=== PATIENT | female | born 1945 | race Caucasian/White ===

== ENCOUNTER 2025-06-20 14:29 | Emergency (ER) | payer MEDICARE, MEDICAID, SELFPAY ==
[2025-06-20 14:51] VITALS: BP 192/81; PULSE 76; RESP 18; TEMP 36.6; O2SAT 97; BMI 25.1
--- NOTE | 2025-06-20 14:51 | ED_ITS ---
HPI - Allergic Reaction General Chief complaint: Allergic Reaction Stated complaint: allergic reaction after eating jello Time Seen by Provider: 06/20/25 14:53 Related Data Allergies Allergy/AdvReac Type Severity Reaction Status Date / Time cephalexin (From KEFLEX) Allergy Severe ANGIO EDEMA Unverified 06/20/25 14:56 Penicillins (PCN) Allergy Severe DIFFICULTY Unverified 06/20/25 14:56 BREATHING codeine (CODEINE) Allergy Intermediate RASH Unverified 06/20/25 14:56 oxycodone Allergy Unknown rash Unverified 06/20/25 14:56 penicillin V Allergy Unknown Unknown Unverified 06/20/25 14:56 [facility] Social History Social History Advance Directives: No Advance Directives Information Provided: No Physical Exam ED Vital Signs: Vital Signs - 24 hr 06/20/25 14:51 Temperature 98 F Pulse Rate 76 Respiratory Rate 18 Blood Pressure 192/81 H Pulse Oximetry 97 Oxygen Delivery Method Room Air BMI result Body Mass Index 25.1 Course Course Course Narrative: Agatha Onofre [employer] 06/20/25 1458 This is a rapid medical exam. Defer additional HPI, ROS and PE to primary provider. 80-year-old female here with complaints of headache, bilateral blurry vision since last evening. Headache seemed better with Tylenol. Also concerned that she may be having allergic reaction to Jell-O which she ate. Her allergy symptoms are described as itching around my mouth. She does reports that she takes no antihypertensive. Her blood pressure is elevated in triage. Will obtain labs, EKG Hypertensive in triage Medical Decision Making Lab Data 06/20/25 15:09 06/20/25 15:09 Labs: Lab Results 06/20/25 Range/Units 15:09 WBC 7.3 (4.8-10.8) X10*3/uL RBC 4.13 L (4.20-5.50) X10*6/uL Hgb 12.0 (12.0-16.0) g/dl Hct 36.6 L (37.0-47.0) % MCV 88.6 (80.0-98.0) fL MCH 29.1 (27.0-33.0) pg MCHC 32.8 (31.0-35.0) g/dl RDW 13.0 (11.0-16.0) % Plt Count 146 L (160-400) X10*3/uL MPV 10.9 (9.4-12.3) fL Immature Gran % (Auto) 0.3 (0.0-0.4) % Neut % (Auto) 44.9 L (45-73) % Lymph % (Auto) 40.0 (20-40) % [place] % (Auto) 8.1 (2-11) % Eos % (Auto) 5.9 H (0-4) % Baso % (Auto) 0.8 (0-2) % Lymph # (Auto) 2.9 (1.2-4.9) X10*3/uL [place] # (Auto) 0.6 (0.1-1.2) X10*3/uL Eos # (Auto) 0.4 (0.0-0.4) X10*3/uL Baso # (Auto) 0.1 (0.0-0.2) X10*3/uL Abs Immat Gran (auto) 0.02 (0.00-0.03) X10*3/uL Absolute Neuts (auto) 3.3 (2.0-8.3) x10*3/uL Absolute Nucleated RBC 0.000 (0.0-0.012) X10*3/uL Nucleated RBC % (auto) 0.0 (0.0-0.2) /100WBC Sodium 140 (135-145) mmol/L Potassium 4.0 (3.3-5.1) mmol/L Chloride 106 (96-108) mmol/L Carbon Dioxide 26 (22-29) mmol/L Anion Gap 12 (12-20) BUN 19 H (9-16) mg/dL Creatinine 0.89 (0.5-1.4) mg/dL Estim Creat Clear Calc 47.0 Estimated GFR > 60 Random Glucose 156 H (60-115) mg/dL Calcium 9.5 (8.4-10.2) mg/dL Total Bilirubin 0.2 (0.0-1.0) mg/dL Direct Bilirubin < 0.2 (0.0-0.5) mg/dL AST 37 H (5-31) U/L ALT 23 (0-31) U/L Alkaline Phosphatase 79 (39-117) U/L Troponin I High Sens 5.2 (<3.5-17.0) ng/L Total Protein 7.5 (6.5-8.0) g/dL Albumin 4.1 (3.5-5.0) g/dL Discharge Plan Discharge Clinical Impression: Allergic reaction, Hypertension Patient Disposition: Left W/O Completing Treatment Discharge Date/Time: 06/20/25 20:37
--- NOTE | 2025-06-20 14:58 | ECG_ITS ---
Test Reason : hypertensive Blood Pressure : */* mmHG Vent. Rate : 70 BPM Atrial Rate : 70 BPM P-R Int : 176 ms QRS Dur : 90 ms QT Int : 406 ms P-R-T Axes : -4 -25 85 degrees QTcB Int : 438 ms Normal sinus rhythm Moderate voltage criteria for LVH, may be normal variant ( R in aVL , Tobias product ) Borderline ECG No previous ECGs available Referred By: Agatha Onofre Electronically Signed By: Noman Rhodes
[2025-06-20 15:13] LABS: MANUAL DIFF FLAG NO
[2025-06-20 15:15] LABS: Hematocrit 36.6 % (37.0-47.0); Hemoglobin 12.0 g/dl (12.0-16.0); Imm Gran Abs Auto 0.02 X10*3/uL (0.00-0.03); Imm Gran Pct Auto 0.3 % (0.0-0.4); Lymphocytes Absolute Auto 2.9 X10*3/uL (1.2-4.9); Mean Corpuscular HGB Conc 32.8 g/dl (31.0-35.0); Mean Corpuscular Hemoglobin 29.1 pg (27.0-33.0); Mean Corpuscular Volume 88.6 fL (80.0-98.0); NRBC Abs Auto 0.000 X10*3/uL (0.0-0.012); NRBC Pct Auto 0.0 /100WBC (0.0-0.2); Platelet Count 146 X10*3/uL (160-400); Red Blood Count 4.13 X10*6/uL (4.20-5.50); White Blood Count 7.3 X10*3/uL (4.8-10.8)
[2025-06-20 15:31] LABS: Alanine Aminotransferase 23 U/L (0-31); Albumin Level 4.1 g/dL (3.5-5.0); Alkaline Phosphatase 79 U/L (39-117); Anion Gap 12 (12-20); Aspartate Amino Transferase 37 U/L (5-31); Blood Urea Nitrogen 19 mg/dL (9-16); Calcium 9.5 mg/dL (8.4-10.2); Carbon Dioxide 26 mmol/L (22-29); Chloride 106 mmol/L (96-108); Creatinine Clr Calc Pharmacy 47.0; Estimated Glomerular Filt Rate > 60; Potassium 4.0 mmol/L (3.3-5.1); Sodium 140 mmol/L (135-145); Total Protein 7.5 g/dL (6.5-8.0)
[2025-06-20 15:37] LABS: Troponin-I High Sensitivity 5.2 ng/L (<3.5-17.0)
== END 2025-06-20 20:37 | disposition left against medical advice (07) ==
PROVIDERS: Nurse Practitioner Family; Emergency Provider Emergency Medicine
DX: R51.9 Headache, unspecified (principal); H53.8 Other visual disturbances; I10 Essential (primary) hypertension; R94.31 Abnormal electrocardiogram [ECG] [EKG]; Z79.899 Other long term (current) drug therapy
CPT/HCPCS: 36415; 80048; 80076; 84484; 85025; 93005; 99283

== ENCOUNTER → 2025-06-20 14:58 | Outpatient (BNV) | payer MEDICARE, MEDICAID, SELFPAY | PROVIDERS: Emergency Provider Emergency Medicine; Visit Provider Internal Medicine Cardiovascular Disease | DX: I10 Essential (primary) hypertension (principal) | CPT/HCPCS: 93010 ==